=== PATIENT | male | born 2000 | race Hispanic/Latino ===

== ENCOUNTER 2023-04-20 03:34 | Emergency (ER) | payer SELFPAY ==
[2023-04-20 06:01] LABS: #Monocytes 0.5 thou/uL (0.11-0.59); #Neutrophils 8.1 thou/uL (1.40-6.50); %Basophils 0.3 % (0.0-1.0); %Lymphocytes 15.7 % (21.0-51.0); %Monocytes 4.5 % (0.0-10.0); %Neutrophils 79.1 % (42.0-75.0); Hematocrit 43.2 % (42.0-52.0); Hemoglobin 14.7 g/dL (14.0-18.0); Mean Corpuscular Hemoglobin 30.7 pg (27.0-31.0); Mean Corpuscular Volume 90.2 fl (78.0-98.0); Mean Platelet Volume 10.9 fL (7.4-10.4); Platelet Count 233 10x3/uL (130-400); RBC Distribution Width 11.9 % (11.5-14.5); Red Blood Cell (RBC) Count 4.79 mill/uL (4.70-6.10); White Blood Cell (WBC) Count 10.3 10x3/uL (4.8-10.8)
[2023-04-20 06:22] LABS: Acetaminophen Less than 10 mcg/mL (10.0-30.0); Alcohol 232.6 mg/dL (Less than 10); Salicylate Less than 8.0 mg/dL (15.0-30.0)
[2023-04-20 06:29] LABS: ALT (SGPT) 43 U/L (8-55); AST (SGOT) 110 U/L (5-34); Albumin 4.4 g/dL (3.5-5.0); Alkaline Phosphatase 72 U/L (40-110); Anion Gap 12 mmol/L (10-20); BUN (Urea Nitrogen) 11 mg/dL (8.9-20.6); Bilirubin, Total 0.3 mg/dL (0.2-1.2); Calc. Creatinine Clearance 0 mL/min (70-130); Calcium 8.3 mg/dL (7.8-10.44); Carbon Dioxide 22 mmol/L (22-29); Chloride 111 mmol/L (98-107); Estimated GFR 128; Globulin 2.6 g/dL (2.4-3.5); Glucose 118 mg/dL (70-105); Potassium 4.4 mmol/L (3.5-5.1); Sodium 141 mmol/L (136-145)
== END 2023-04-20 07:32 | disposition home or self-care (01) ==
LOC: ERS 03:34
DX: F10.129 Alcohol abuse with intoxication, unspecified (principal); Y90.7 Blood alcohol level of 200-239 mg/100 ml
CPT/HCPCS: 36415; 70450; 80053; 80307; 85025; 93005; 96360; 96361